=== PATIENT | male | born 1950 | race American Indian/Alaskan Native ===

== ENCOUNTER 2019-12-05 08:33 | Emergency (ER) | payer MEDICARE ==
--- NOTE | 2019-12-05 08:59 | Emergency Department Report ---
ED Fall HPI - General Stated Complaint: GROUND LEVEL FALL Time Seen by Provider: 12/05/19 08:55 Source: patient, EMS Mode of arrival: Stretcher Limitations: Other (Dementia) - History of Present Illness Initial Comments: 69-year male with a past medical history of dementia presents to the hospital after a fall out of bed this a.m. History obtained from EMS. apparently notify EMS after she was in the room and heard patient fall out of bed. LOC not reported but patient did have epistaxis which resolved at time of EMS arrival. Patient did complain of back pain but denies back pain at this time but states he took a hydrocodone prior to arrival. The hydrocodone is prescribed for chronic back pain. Patient does not complain of any significant pain at this time. Patient denies blood thinner and aspirin use - Related Data Home Medications Medication Instructions Recorded Confirmed Last Taken DULoxetine [Cymbalta] 60 mg PO QDAY 12/05/19 12/05/19 Unknown Losartan [Cozaar] 100 mg PO QDAY 12/05/19 12/05/19 Unknown amLODIPine [Norvasc] 5 mg PO DAILY 12/05/19 12/05/19 Unknown donepeziL [Aricept] 10 mg PO QDAY 12/05/19 12/05/19 Unknown hydroCHLOROthiazide [HCTZ] 25 mg PO QDAY 12/05/19 12/05/19 Unknown Allergies Allergy/AdvReac Type Severity Reaction Status Date / Time No Known Allergies Allergy Unverified 12/05/19 09:02 ED Review of Systems ROS: Stated complaint: GROUND LEVEL FALL Other details as noted in HPI Comment: All other systems reviewed and negative ED Past Medical Hx - Medications Home Medications: Home Medications Medication Instructions Recorded Confirmed Last Taken Type DULoxetine [Cymbalta] 60 mg PO QDAY 12/05/19 12/05/19 Unknown History Losartan [Cozaar] 100 mg PO QDAY 12/05/19 12/05/19 Unknown History amLODIPine [Norvasc] 5 mg PO DAILY 12/05/19 12/05/19 Unknown History donepeziL [Aricept] 10 mg PO QDAY 12/05/19 12/05/19 Unknown History hydroCHLOROthiazide [HCTZ] 25 mg PO QDAY 12/05/19 12/05/19 Unknown History ED Physical Exam - Other Other exam information: General: No acute distress Head: Atraumatic Eyes: normal appearance ENT: Moist mucous membranes. Mild redness to anterior nose without crepitus. Dried blood in bilateral nares Neck: Normal appearance, no midline tenderness Chest: Clear to auscultation bilaterally CV: Regular rate and rhythm Abdomen: Soft, normal bowel sounds, nontender, nondistended, no rebound or guarding Back: Normal inspection, no midline tenderness, no CVA tenderness Extremity: Normal inspection, full range of motion Neuro: Alert and oriented to self, place, but states year is 2017, no facial asymmetry, speech clear, handgrip and foot dorsiflexion 5/5 equal bilaterally, sensation grossly intact Psych: Appropriate behavior Skin: No rash ED Course Vital Signs 12/05/19 12/05/19 12/05/19 08:52 08:59 09:00 Temperature 97.8 F Pulse Rate 74 Respiratory 16 Rate Blood Pressure 129/67 129/67 129/67 O2 Sat by Pulse 100 98 97 Oximetry 12/05/19 12/05/19 12/05/19 09:03 09:28 09:30 Temperature Pulse Rate Respiratory 16 Rate Blood Pressure 129/67 129/67 O2 Sat by Pulse 99 98 Oximetry 12/05/19 12/05/19 09:46 10:00 Temperature Pulse Rate 57 L 56 L Respiratory 16 17 Rate Blood Pressure 129/67 125/65 O2 Sat by Pulse 97 96 Oximetry ED Medical Decision Making - Radiology Data Radiology results: report reviewed LUMBAR SPINE 3 VIEWS INDICATION: chronic back pain increased after fall COMPARISON: None. FINDINGS: There is no fracture, subluxation, or other acute radiographic abnormality of the lumbar spine. There is marginal osteophyte formation throughout the lumbar spine. Disc space heights are relatively well- maintained. Pedicles appear intact. There is some degenerative type change in the SI joints. Atherosclerotic calcifications are noted in the aorta. CT CERVICAL SPINE WITHOUT CONTRAST INDICATION: face injury, fall. TECHNIQUE: Axial imaging performed through the cervical spine without the use of contrast. Sagittal and coronal reconstructed images were also reviewed. All CT scans at this location are performed using CT dose reduction for ALARA by means of automated exposure control. COMPARISON: None FINDINGS: Alignment: Spinal alignment is normal. Bones: There is no acute osseous abnormality. Minimal multilevel discogenic DJD is present. Soft tissues: No acute or significant incidental soft tissue abnormality. CT FACIAL BONES WITHOUT CONTRAST INDICATION : face injury, fall, epistaxis. TECHNIQUE: Axial imaging performed through the face with reconstructed images also reviewed. Sagittal and coronal reformatted images. All CT scans at this location are performed using CT dose reduction for ALARA by means of automated exposure control. COMPARISON: None FINDINGS: Subtle deformity in the left nasal bone is identified, the age of this is indeterminate. The orbital cavities, paranasal sinuses, zygomas and mandible are intact. Visualized skull base is intact. Facial soft tissues are unremarkable. IMPRESSION: Left nasal bone deformity, age indeterminate. Please correlate with the patient. The remaining facial bones are intact. CT HEAD WITHOUT CONTRAST INDICATION / CLINICAL INFORMATION: face injury, fall. TECHNIQUE: Axial imaging performed from the skull apex through the skull base without the use of contrast. Sagittal and coronal reformatted images. All CT scans at this location are performed using CT dose reduction for ALARA by means of automated exposure control. COMPARISON: None available. FINDINGS: CEREBRAL PARENCHYMA: Mild chronic microangiopathy is noted throughout the white matter. No acute territorial infarct. HEMORRHAGE: None. EXTRA-AXIAL SPACES: Normal in size and morphology for the patient's age. VENTRICULAR SYSTEM: Normal in size and morphology for the patient's age. MIDLINE SHIFT OR HERNIATION: None. CEREBELLUM / BRAINSTEM: No significant abnormality. CALVARIUM: No significant abnormality. ORBITS: Normal as visualized. PARANASAL SINUSES / MASTOID AIR CELLS: Normal as visualized. SOFT TISSUES of HEAD: No significant abnormality. ADDITIONAL FINDINGS: None. IMPRESSION: No acute intracranial abnormality. Mild nonspecific chronic white matter changes. - Medical Decision Making Patient fell out of bed and had epistaxis. CT facial bones revealed a left nasal fracture. Epistaxis resolved prior to ED arrival. Patient does not have any significant tenderness on exam but did take a [place] prior to arrival. Lumbar x-ray, CT cervical spine, and CT head did not show any acute abnormalities. Patient will be discharged to continue his current pain regiment. Critical Care Time: No Critical care attestation.: If time is entered above; I have spent that time in minutes in the direct care of this critically ill patient, excluding procedure time. ED Disposition Clinical Impression: Fall, Nasal fracture, Epistaxis, Chronic back pain, Dementia Disposition: TO HOME OR SELFCARE Is pt being admited?: No Does the pt Need Aspirin: No Condition: Stable Instructions: Nasal Fracture (ED), Epistaxis (ED), Dementia (ED), Fall Prevention for Older Adults (ED) Additional Instructions: Continue your current medication as prescribed. Follow-up with your doctor or doctor/clinic provided. Return if symptoms worsen as indicated by your discharge instructions. Referrals: PRIMARY CARE, [Primary Care Provider] - 3-5 Days LALO BOWERS MD [Staff Physician] - 3-5 Days DANIEL ALBERTO MD [Staff Physician] - 3-5 Days (ENT (ear nose throat) doctor ) Time of Disposition: 10:20
--- NOTE | 2019-12-05 09:35 | Cat Scan Report ---
CT HEAD WITHOUT CONTRAST INDICATION / CLINICAL INFORMATION: face injury, fall. TECHNIQUE: Axial imaging performed from the skull apex through the skull base without the use of cont rast. Sagittal and coronal reformatted images. All CT scans at this location are performed using CT dose reduction for ALARA by means of automated exposure control. COMPARISON: None available. FINDINGS: CEREBRAL PARENCHYMA: Mild chronic microangiopathy is noted throughout the white matter. No acute terr itorial infarct. HEMORRHAGE: None. EXTRA-AXIAL SPACES: Normal in size and morphology for the patient's age. VENTRICULAR SYSTEM: Normal in size and morphology for the patient's age. MIDLINE SHIFT OR HERNIATION: None. CEREBELLUM / BRAINSTEM: No significant abnormality. CALVARIUM: No significant abnormality. ORBITS: Normal as visualized. PARANASAL SINUSES / MASTOID AIR CELLS: Normal as visualized. SOFT TISSUES of HEAD: No significant abnormality. ADDITIONAL FINDINGS: None. IMPRESSION: No acute intracranial abnormality. Mild nonspecific chronic white matter changes. Signer Name: Pee Chand Jr, MD Signed: 12/05/2019 9:31 AM Workstation Name: [id number]
--- NOTE | 2019-12-05 09:40 | XRay Report ---
LUMBAR SPINE 3 VIEWS INDICATION: chronic back pain increased after fall COMPARISON: None. FINDINGS: There is no fracture, subluxation, or other acute radiographic abnormality of the lumbar spine. There is marginal osteophyte formation throughout the lumbar spine. Disc space heights are relatively well -maintained. Pedicles appear intact. There is some degenerative type change in the SI joints. Atherosclerotic calcifications are noted in the aorta. Signer Name: Petar Rush MD Signed: 12/05/2019 9:36 AM Workstation Name: [id number]
--- NOTE | 2019-12-05 09:46 | Cat Scan Report ---
CT FACIAL BONES WITHOUT CONTRAST INDICATION : face injury, fall, epistaxis. TECHNIQUE: Axial imaging performed through the face with reconstructed images also reviewed. Sagitta l and coronal reformatted images. All CT scans at this location are performed using CT dose reduction for ALARA by means of automated exposure control. COMPARISON: None FINDINGS: Subtle deformity in the left nasal bone is identified, the age of this is indeterminate. T he orbital cavities, paranasal sinuses, zygomas and mandible are intact. Visualized skull base is int act. Facial soft tissues are unremarkable. IMPRESSION: Left nasal bone deformity, age indeterminate. Please correlate with the patient. The fernanda ining facial bones are intact. Signer Name: Pee Chand Jr, MD Signed: 12/05/2019 9:42 AM Workstation Name: [id number]
--- NOTE | 2019-12-05 09:47 | Cat Scan Report ---
CT CERVICAL SPINE WITHOUT CONTRAST INDICATION: face injury, fall. TECHNIQUE: Axial imaging performed through the cervical spine without the use of contrast. Sagittal and coronal reconstructed images were also reviewed. All CT scans at this location are performed us ing CT dose reduction for ALARA by means of automated exposure control. COMPARISON: None FINDINGS: Alignment: Spinal alignment is normal. Bones: There is no acute osseous abnormality. Minimal multilevel discogenic DJD is present. Soft tissues: No acute or significant incidental soft tissue abnormality. IMPRESSION: No acute abnormality. Signer Name: Pee Chand Jr, MD Signed: 12/05/2019 9:43 AM Workstation Name: [id number]
[2019-12-05 11:34] VITALS: BP 129/67
== END 2019-12-05 11:35 | disposition home or self-care (01) ==
LOC: ED 08:33
DX: S02.2XXA Fracture of nasal bones, initial encounter for closed fracture (principal); R04.0 Epistaxis; F03.90 Unspecified dementia, unspecified severity, without behavioral disturbance, psychotic disturbance, mood disturbance, and anxiety; Z79.899 Other long term (current) drug therapy; W06.XXXA Fall from bed, initial encounter; Y93.89 Activity, other specified; Y92.89 Other specified places as the place of occurrence of the external cause; Y99.8 Other external cause status
CPT/HCPCS: 70450; 70486; 72100; 72125